=== PATIENT | female | born 1990 | race Caucasian/White ===

== ENCOUNTER 2020-05-22 18:04 | Inpatient (IN) | payer OTHER ==
[~2020-05-22] VITALS: Ht 165.1 cm; Wt 73.9 kg
[2020-05-22] MEDS ORDERED: CARBOPROST TROMETHAMINE 250 MCG/ML AMPUL IM PRN (19:00)
[2020-05-22] MEDS ORDERED: ACETAMINOPHEN 500MG TABLET PO NR (19:00)
[2020-05-22] MEDS ORDERED: FENTANYL CITRATE/PF 50MCG/ML 2ML VIAL IV PRN (19:00)
[2020-05-22] MEDS ORDERED: METHYLERGONOVINE MALEATE 0.2 MG/ML IM PRN (19:00)
[2020-05-22] MEDS ORDERED: LIDOCAINE HCL 1% 20ML VIAL (Pyxis) INJ INFIL SCH (19:00)
[2020-05-22] MEDS ORDERED: NALOXONE HCL 0.4 MG/ML 1ML VIAL IM PRN (19:00)
[2020-05-22 20:05] LABS: CLARITY URINE CLOUDY (CLEAR); COLOR URINE YELLOW (YELLOW); KETONES URINE NEGATIVE (NEGATIVE); LEUKOCYTE ESTERASE URINE 1+ (NEGATIVE); NITRITE URINE NEGATIVE (NEGATIVE); OCCULT BLOOD URINE NEGATIVE (NEGATIVE); PROTEIN URINE NEGATIVE (NEGATIVE); SPECIFIC GRAVITY URINE 1.016 (1.005-1.030); UROBILINOGEN URINE 0.2 E.U./dL (0.2-1.0)
[2020-05-22 20:06] LABS: BASOPHILS % 0.4 % (0.0-2.0); EOSINOPHILS % 0.9 % (0.0-5.0); HEMATOCRIT. 35.7 % (36.0-48.0); HEMOGLOBIN. 11.8 g/dL (12.0-16.0); LYMPHOCYTES % 22.5 % (20.0-50.0); MEAN CORPUSCULAR HEMOGLOBIN 28.1 pg (28.0-32.0); MEAN CORPUSCULAR VOLUME 85.3 fL (81.0-99.0); MEAN PLATELET VOLUME 8.6 fl (7.4-10.4); MONOCYTES % 10.8 % (2.0-8.0); NEUTROPHILS % 65.4 % (40.0-76.0); PLATELET 291 x1000/uL (130-400); RED BLOOD CELL COUNT 4.19 mill/uL (4.2-5.4); RED CELL DISTRIBUTION WIDTH 13.4 % (11.6-14.6)
[2020-05-22 20:12] LABS: INR 0.9; PROTHROMBIN TIME 9.9 sec (9.6-11.0)
[2020-05-22 20:14] LABS: *BARBITURATES SCREEN URINE NEGATIVE (NEGATIVE); *BENZODIAZEPINES SCREEN URINE NEGATIVE (NEGATIVE); *COCAINE SCREEN URINE NEGATIVE (NEGATIVE); METHADONE URINE SCREEN NEGATIVE (NEGATIVE); OPIATES URINE SCREEN NEGATIVE (NEGATIVE)
[2020-05-22 20:15] LABS: *AMPHETAMINES SCREEN URINE NEGATIVE (NEGATIVE); CANNABINOID URINE SCREEN NEGATIVE (NEGATIVE); PHENCYCLIDINE URINE SCREEN NEGATIVE (NEGATIVE)
[2020-05-22 20:55] LABS: HEPATITIS B SURFACE ANTIGEN NEGATIVE
[2020-05-22] MEDS: DEXT 5%/LR + PITOCIN 20UNITS/L 1,000 ML IV SCH (20:55)
[2020-05-22] MEDS: LACTATED RINGERS 1,000 ML IV SCH (20:55)
[2020-05-23] MEDS: LACTATED RINGERS 1,000 ML IV SCH ×2 (01:01→09:00)
[2020-05-23] MEDS ORDERED: BUTORPHANOL TARTRATE 2 MG/ML VIAL IV PRN (06:00)
[2020-05-23] MEDS ORDERED: ROPIVACAINE HCL/PF EPIDURAL 200 ML EP SCH (08:30)
[2020-05-23] MEDS ORDERED: BUPIVACAINE HCL/PF 0.25% (2.5MG/ML) 10ML ONE (11:24)
[2020-05-23] MEDS ORDERED: IBUPROFEN 400MG TABLET PO PRN (13:30)
[2020-05-23] MEDS ORDERED: DIPHENHYDRAMINE 25MG CAPSULE PO PRN (13:30)
[2020-05-23] MEDS ORDERED: LANOLIN OINT 7GM TUBE TOP PRN (13:30)
[2020-05-23] MEDS: DEXT 5%/LR + PITOCIN 20UNITS/L 1,000 ML IV SCH (14:00)
[2020-05-23] MEDS: ACETAMINOPHEN WITH CODEINE 300/30MG TABLET PO PRN ×2 (14:47→19:29)
[2020-05-23 15:34] VITALS: BP 96/52
[2020-05-23 16:30] VITALS: BP 92/55
[2020-05-23 19:15] VITALS: BP 99/59
[2020-05-23] MEDS: GLYCERIN/WITCH HAZEL LEAF MEDICATED PAD TOP PRN (19:29)
[2020-05-23] MEDS: BENZOCAINE/LANOLIN/ALOE VERA SPRAY TOP PRN (19:29)
[2020-05-23] MEDS ORDERED: DOCUSATE SODIUM 100MG CAPSULE PO SCH (21:00)
[2020-05-23] MEDS: OXYCODONE HCL/ACETAMINOPHEN 5/325MG TABLET PO PRN (23:57)
[2020-05-24 04:15] VITALS: BP 106/70
[2020-05-24] MEDS: OXYCODONE HCL/ACETAMINOPHEN 5/325MG TABLET PO PRN (04:18)
[2020-05-24 08:00] VITALS: BP 90/50
[2020-05-24] MEDS: ACETAMINOPHEN WITH CODEINE 300/30MG TABLET PO PRN (10:36)
[2020-05-24] MEDS: BENZOCAINE/LANOLIN/ALOE VERA SPRAY TOP PRN (13:33)
[2020-05-24] MEDS: GLYCERIN/WITCH HAZEL LEAF MEDICATED PAD TOP PRN (13:33)
== END 2020-05-24 13:35 | disposition home or self-care (01) | DRG 807 ==
LOC: 8 EST LDRP 18:04 → OBSVTOIN 18:04 → 8EST 05-23 15:10
PROVIDERS: ADMIT Obstetrics & Gynecology; ATTEND Obstetrics & Gynecology
PROC: 10E0XZZ Delivery of Products of Conception, External Approach (ICD-10-PCS; principal; 2020-05-23)
PROC: 0HQ9XZZ Repair Perineum Skin, External Approach (ICD-10-PCS; 2020-05-23)
DX: O70.9 Perineal laceration during delivery, unspecified (principal); Z37.0 Single live birth; Z3A.39 39 weeks gestation of pregnancy
CPT/HCPCS: 36415; 80305; 81003; 85025; 86592; 86703; 86762; 86850; 86900; 87340; 99281; G0378; J0595; J2590; J2795; J3490; J7120; A4315